=== PATIENT | female | born 1985 | race Native Hawaiian/Other Pacific Islander ===

== ENCOUNTER 2017-04-17 13:45 | Emergency (ER) | payer OTHER ==
[~2017-04-17] VITALS: Ht 162.6 cm; Wt 150.1 kg
[~2017-04-17 13:45] MED LIST: AMBIEN5 MG PO; CLON1TAB18 PO; HUMALOG100 MG/ML SC; LANTUS100 MG/ML SC; LISI20TA11 PO; SERT100T PO; XARELTO20 MG PO
[2017-04-17 13:49] VITALS: BP 140/93; TEMP 98.6
[2017-04-17] MEDS ORDERED: INSUINJ47 SC (14:10)
[2017-04-17] MEDS ORDERED: NEURONTIN800 MG PO (14:11)
[2017-04-17] MEDS ORDERED: HUMALOG KWI100 MG/ML SC (14:11)
[2017-04-17] MEDS ORDERED: HYDR10TA47A PO (14:14)
[2017-04-17] MEDS ORDERED: LEVO0.1224 PO (14:15)
[2017-04-17] MEDS ORDERED: CLON1TAB18 PO (14:16)
[2017-04-17 14:37] LABS: PLATELET COUNT 207 K/uL (152-353)
[2017-04-17 14:47] LABS: POTASSIUM 3.9 mmol/L (3.6-5.2)
[2017-04-17 14:52] LABS: PARTIAL THROMBOPLASTIN TIME 21.8 SECONDS (24.5-33.6)
== END 2017-04-17 16:28 | disposition home or self-care (01) ==
LOC: ED 13:45
PROVIDERS: Emergency Medicine
DX: L03.113 Cellulitis of right upper limb (principal)
CPT/HCPCS: 36415; 80053; 85027; 85610; 85730; 99283

== ENCOUNTER 2020-06-23 08:34 | Outpatient (CLI) | payer OTHER ==
[~2020-06-23 08:34] MED LIST changes: +HUMALOG KWI100 MG/ML SC; +HYDR10TA47A PO; +INSUINJ47 SC; +LEVO0.1224 PO; +NEURONTIN800 MG PO
== END 2020-06-23 20:03 | disposition home or self-care (01) ==
LOC: LAB 08:34
DX: Z20.828 Contact with and (suspected) exposure to other viral communicable diseases (principal); R53.83 Other fatigue; R74.8 Abnormal levels of other serum enzymes
CPT/HCPCS: 87635; G2023; U0003

== ENCOUNTER 2020-07-13 10:45 | Outpatient (CLI) | payer OTHER | END 2020-07-13 23:36 | disposition home or self-care (01) | LOC: US 10:45 | DX: R74.8 Abnormal levels of other serum enzymes (principal); R53.83 Other fatigue; Z20.828 Contact with and (suspected) exposure to other viral communicable diseases | CPT/HCPCS: 36415; 80074 ==

== ENCOUNTER 2020-07-15 12:13 | Emergency (ER) | payer OTHER ==
[~2020-07-15] VITALS: Ht 162.6 cm; Wt 171.0 kg
[2020-07-15 14:02] LABS: PLATELET COUNT 266 K/uL (152-353)
[2020-07-15 14:10] LABS: POTASSIUM 5.3 mmol/L (3.6-5.2)
[2020-07-15 15:08] VITALS: BP 111/62; TEMP 98
== END 2020-07-15 15:09 | disposition home or self-care (01) ==
LOC: ED 12:13
PROVIDERS: Hospitalist
DX: N30.80 Other cystitis without hematuria (principal); M54.5 Low back pain; G89.29 Other chronic pain
CPT/HCPCS: 80053; 80307; 80320; 81000; 85027; 96365; 96374; 96375; 99284; J0696; J1642; J1885; J2765

== ENCOUNTER 2020-08-11 08:37 | Emergency (ER) | payer OTHER ==
[~2020-08-11] VITALS: Ht 162.6 cm; Wt 171.0 kg
[2020-08-11 08:51] VITALS: BP 120/59; TEMP 99.2
[2020-08-11 09:40] LABS: POTASSIUM 4.7 mmol/L (3.6-5.2)
[2020-08-11 09:57] LABS: PLATELET COUNT 243 K/uL (152-353)
== END 2020-08-11 10:23 | disposition home or self-care (01) ==
LOC: ED 08:37
PROVIDERS: Family Medicine
DX: M54.5 Low back pain (principal); N39.0 Urinary tract infection, site not specified; G58.8 Other specified mononeuropathies
CPT/HCPCS: 80053; 80307; 81000; 85027; 87086; 87088; 96372; 99283; J1885

== ENCOUNTER 2021-06-15 10:27 | Outpatient (CLI) | payer OTHER | END 2021-06-15 21:59 | disposition home or self-care (01) | LOC: RESP 10:27 | PROVIDERS: ATTEND Specialist | DX: R06.02 Shortness of breath (principal); Z86.79 Personal history of other diseases of the circulatory system; R06.01 Orthopnea ==

== ENCOUNTER 2021-09-03 10:37 | Outpatient (CLI) | payer OTHER | END 2021-09-03 21:48 | disposition home or self-care (01) | LOC: LABW 10:37 | PROVIDERS: ATTEND Family Medicine | DX: R19.7 Diarrhea, unspecified (principal); R11.10 Vomiting, unspecified | CPT/HCPCS: 82272; 83630; 87015; 87045; 87324; 87328; 87329; 87449; 87899 ==